=== PATIENT | female | born 1955 | race Caucasian/White ===

== ENCOUNTER 2019-08-25 14:54 | Emergency (ER) | payer MEDICARE ==
[~2019-08-25] VITALS: Ht 162.6 cm; Wt 84.1 kg
[2019-08-25] MEDS ORDERED: METF-960 PO (15:10)
[2019-08-25 17:37] LABS: BASOPHILS % (AUTO) 0.4 % (0.0-2.0); EOSINOPHILS % (AUTO) 0.2 % (1.0-6.0); HEMATOCRIT 36.8 % (36-46); HEMOGLOBIN 12.3 g/dL (12.0-16.0); LYMPHOCYTES # (AUTO) 1.6 K/uL (1.0-4.8); MEAN CORPUSCULAR HEMOGLOBIN 28.5 pg (26.0-34.0); MEAN CORPUSCULAR HGB CONC 33.5 G/dL (31.0-37.0); MEAN CORPUSCULAR VOLUME 85 fL (80-100); MONOCYTES # (AUTO) 0.9 K/uL (0.1-1.0); MONOCYTES % (AUTO) 6.6 % (2.0-9.0); NEUTROPHILS % (AUTO) 80.8 % (40.0-70.0); PLATELET COUNT (AUTO) 202 K/uL (150-450); RED BLOOD CELL COUNT(AUTO) 4.33 MIL/uL (4.00-5.20); RED CELL DISTRIBUTION WIDTH 14.7 % (11.5-14.5)
[2019-08-25 17:54] LABS: ANION GAP 9 mmol/L (8-16); CALCIUM, TOTAL 9.3 mg/dL (8.8-10.5); CARBON DIOXIDE 27 mmol/L (22-29); CHLORIDE 99 mmol/L (98-107); GLOMERULAR FILTR. RATE CALC > 60 mL/min (>60); GLUCOSE,RANDOM 173 mg/dL (70-110); POTASSIUM 3.5 mmol/L (3.5-5.1); SODIUM SERUM 135 mmol/L (136-145); UREA NITROGEN, BLOOD 9 mg/dL (7-18)
[2019-08-25 17:59] LABS: ALANINE AMINOTRANSFERASE 24 U/L (12-78); ALBUMIN 3.7 g/dL (3.4-5.0); ALKALINE PHOSPHATASE 77 U/L (46-116); ASPARTATE AMINOTRANSFERASE 21 U/L (15-37); BILIRUBIN,TOTAL 1.3 mg/dL (0.1-1.0); TOTAL PROTEIN, SERUM 8.7 g/dL (6.4-8.2)
[2019-08-25] MEDS ORDERED: SODIUM CHLORIDE 0.9% 1,000 ML IV ONE (18:30)
[2019-08-25] MEDS ORDERED: CefTRIAXone 1 GM/DEXTROSE 50 ML IV ONE (18:30)
[2019-08-25 18:45] LABS: APPEARANCE,URINE CLOUDY (CLEAR); BILIRUBIN,URINE NEGATIVE (NEGATIVE); GLUCOSE, URINE (UA) NEGATIVE (NEGATIVE); KETONES,URINE TRACE mg/dL (NEGATIVE); LEUKOCYTE ESTERASE ,URINE MODERATE (NEGATIVE); NITRATE,URINE POSITIVE (NEGATIVE); OCCULT BLOOD,URINE TRACE (NEGATIVE); PH,URINE 5.5 (5.0-8.0); PROTEIN,URINE TRACE (NEGATIVE); UROBILINOGEN,URINE 0.2 mg/dL (<=1.0)
[2019-08-25] MEDS ORDERED: IOVERSOL 320 MG/ML 100 ML VIAL ONE (19:08)
[2019-08-25] MEDS ORDERED: SODIUM CHLORIDE 0.9% 100 ML ONE (19:08)
[2019-08-25 19:23] LABS: BACTERIA,URINE Moderate /HPF (None Seen); RBC,URINE 0-2 /HPF (0-2)
[2019-08-25 19:24] LABS: SQUAMOUS EPITHELIAL CELL,UR Few /LPF (None Seen)
[2019-08-25 19:57] LABS: GLUCOSE,POINT OF CARE 149 MG/DL (70-110)
[2019-08-25 20:55] VITALS: BP 128/71
== END 2019-08-25 21:15 | disposition home or self-care (01) ==
LOC: EMS 14:56
DX: N12 Tubulo-interstitial nephritis, not specified as acute or chronic (principal); E11.9 Type 2 diabetes mellitus without complications; E03.9 Hypothyroidism, unspecified; I10 Essential (primary) hypertension; Z90.710 Acquired absence of both cervix and uterus; Z79.899 Other long term (current) drug therapy; Z98.890 Other specified postprocedural states; Z79.84 Long term (current) use of oral hypoglycemic drugs
CPT/HCPCS: 36415; 74177; 80053; 81001; 82962; 83605; 85025; 87040; 87077; 87086; 87186; 96365; 99284; J0696; J7030; J7050; Q9967